=== PATIENT | female | born 1940 | race Caucasian/White ===

== ENCOUNTER 2018-07-18 08:05 | Outpatient (CLI) | payer MEDICARE, OTHER | END 2018-07-18 08:06 | disposition home or self-care (01) | LOC: C.LAB 08:05 | DX: B19.20 Unspecified viral hepatitis C without hepatic coma (principal) ==

== ENCOUNTER 2018-07-20 09:25 | Outpatient (CLI) | payer MEDICARE, OTHER | END 2018-07-20 09:26 | disposition home or self-care (01) | LOC: C.USIC 09:25 | DX: B19.20 Unspecified viral hepatitis C without hepatic coma (principal) ==

== ENCOUNTER 2018-07-26 08:54 | Day surgery (SDC) | payer MEDICARE, OTHER ==
[2018-07-25 10:01] VITALS: BMI 27.1
[~2018-07-26 08:54] MED LIST: Lactated Ringer's 500 ML IV SCH
[2018-07-26] MEDS ORDERED: Propofol 10 mg/ml Inj (20 ML) ONE (10:18)
[2018-07-26] MEDS ORDERED: Lactated Ringer's 500 ML IV ONE (10:32)
[2018-07-26 11:24] VITALS: TEMP 97
[2018-07-26 12:03] VITALS: PULSE 57; RESP 18; O2SAT 99
[2018-07-26 12:06] VITALS: BP 142/57
== END 2018-07-26 12:05 | disposition home or self-care (01) ==
LOC: C.ENDO 08:54
PROVIDERS: ATTEND Internal Medicine Gastroenterology
DX: D12.2 Benign neoplasm of ascending colon (principal); D12.5 Benign neoplasm of sigmoid colon
CPT/HCPCS: 45388; 82948; 88305; J2001; J2704; J7120